=== PATIENT | female | born 2000 | race African-American/Black ===

== ENCOUNTER 2022-05-01 09:35 | Emergency (ER) | payer MEDICAID ==
[~2022-05-01] VITALS: Ht 149.9 cm; Wt 66.0 kg
[2022-05-01 09:41] VITALS: BP 144/75
[2022-05-01] MEDS ORDERED: IBUP-2029 MT (12:36)
[2022-05-01] MEDS ORDERED: CYCL10TA21 MT (12:36)
== END 2022-05-01 12:56 | disposition home or self-care (01) ==
LOC: ER 09:35
DX: S40.012A Contusion of left shoulder, initial encounter (principal); J45.909 Unspecified asthma, uncomplicated; V49.9XXA Car occupant (driver) (passenger) injured in unspecified traffic accident, initial encounter; Y93.89 Activity, other specified; Y92.89 Other specified places as the place of occurrence of the external cause; Y99.8 Other external cause status
CPT/HCPCS: 73030; 73080; 81025; 99284

== ENCOUNTER 2022-11-07 13:10 | Emergency (ER) | payer MEDICAID, OTHER ==
[~2022-11-07] VITALS: Ht 149.9 cm; Wt 58.0 kg
[~2022-11-07 13:10] MED LIST: CYCL10TA21 MT; IBUP-2029 MT
[2022-11-07 13:19] VITALS: BP 118/79
[2022-11-07] MEDS ORDERED: ONDANSETRON HCL 4MG/2ML INJ IM STA (15:33)
[2022-11-07] MEDS ORDERED: KETOROLAC 60MG/2ML VIAL IM STA (15:33)
[2022-11-07 15:56] LABS: BASOPHILS % 0.6 % (0.0-2.0); EOSINOPHILS % 0.5 % (0.0-5.0); HEMATOCRIT. 40.9 % (36.0-48.0); HEMOGLOBIN. 13.4 g/dL (12.0-16.0); LYMPHOCYTES % 14.9 % (20.0-50.0); MEAN CORPUSCULAR HEMOGLOBIN 27.8 pg (28.0-32.0); MEAN CORPUSCULAR VOLUME 85.1 fL (81.0-99.0); PLATELET 379 x1000/uL (130-400); RED BLOOD CELL COUNT 4.81 mill/uL (4.2-5.4)
[2022-11-07 16:06] LABS: CHLORIDE 105 mEq/L (98-107)
[2022-11-07] MEDS ORDERED: ACETAMINOPHEN 325MG TABLET PO STA (16:43)
[2022-11-07 16:46] LABS: CLARITY URINE CLEAR (CLEAR); COLOR URINE YELLOW (YELLOW); KETONES URINE 3+ (NEGATIVE); LEUKOCYTE ESTERASE URINE NEGATIVE (NEGATIVE); NITRITE URINE NEGATIVE (NEGATIVE); OCCULT BLOOD URINE NEGATIVE (NEGATIVE); PH URINE 7.5 (4.5-8.0); PROTEIN URINE TRACE (NEGATIVE); SPECIFIC GRAVITY URINE 1.025 (1.005-1.030)
[2022-11-07] MEDS ORDERED: ONDA4TAB50 PO (17:57)
[2022-11-07] MEDS ORDERED: ACET-2708 PO (17:57)
== END 2022-11-07 18:37 | disposition home or self-care (01) ==
LOC: ER 14:43
DX: O26.891 Other specified pregnancy related conditions, first trimester (principal); K52.89 Other specified noninfective gastroenteritis and colitis; J45.909 Unspecified asthma, uncomplicated; O21.8 Other vomiting complicating pregnancy; Z3A.01 Less than 8 weeks gestation of pregnancy
CPT/HCPCS: 36415; 76801; 76817; 80053; 81003; 81025; 83690; 85025; 96372; 99285; J2405; J1885